=== PATIENT | male | born 1985 | race Asian ===

== ENCOUNTER 2023-09-11 07:50 | Day surgery (SDC) | payer OTHER ==
[~2023-09-11] VITALS: Ht 177.8 cm; Wt 90.3 kg
[~2023-09-11 07:50] MED LIST: NS 1,000 ML IV ONE
[2023-09-11] MEDS ORDERED: propofoL 200 MG/20 ML VIAL As Ordered ONE (08:57)
[2023-09-11 09:24] VITALS: BP 117/75; TEMP 96.9; O2SAT 96
== END 2023-09-11 13:35 | disposition home or self-care (01) ==
LOC: M OPP 07:50
PROVIDERS: ATTEND Internal Medicine Gastroenterology
DX: K64.4 Residual hemorrhoidal skin tags (principal); K64.8 Other hemorrhoids; K59.00 Constipation, unspecified; K63.5 Polyp of colon; R10.30 Lower abdominal pain, unspecified; G47.9 Sleep disorder, unspecified; Z86.79 Personal history of other diseases of the circulatory system

== ENCOUNTER 2024-02-22 12:56 | Emergency (ER) | payer OTHER ==
[~2024-02-22] VITALS: Ht 177.8 cm; Wt 85.9 kg
[2024-02-22 13:46] LABS: BASO % 0.2 % (0.0-1.0); EOS # 0.1 10^3/uL (0.0-0.5); EOS % 1.5 % (0.0-3.0); HEMATOCRIT 43.9 % (42.0-52.0); HEMOGLOBIN 15.8 g/dl (13.5-17.5); LYMPH # 1.7 10^3/uL (1.5-5.0); LYMPH % 29.4 % (24.0-44.0); MEAN CORPUSCULAR HEMOGLOBIN 30.7 pg (27.0-33.0); MEAN CORPUSCULAR VOLUME 85.2 fl (80.0-96.0); MONO # 0.5 10^3/uL (0.0-0.8); MONO % 8.3 % (2.0-8.0); NEUTROPHILS # 3.6 10^3/uL (1.5-8.5); NEUTROPHILS % 60.6 % (36.0-66.0); PLATELET COUNT, AUTOMATED 222 10^3/uL (150-450); RED BLOOD COUNT 5.15 10^6/uL (4.30-6.10); WHITE BLOOD COUNT 5.9 10^3/uL (4.0-10.0)
[2024-02-22 14:06] LABS: LIPASE 39 U/L (12-53)
[2024-02-22 14:08] LABS: ALBUMIN 4.2 G/DL (3.2-5.2); ALKALINE PHOSPHATASE 62 U/L (46-116); ALT/SGPT 25 U/L (7.0-40); AST/SGOT 16 U/L (<34); BILIRUBIN,DIRECT 0.3 MG/DL (<0.4); BLOOD UREA NITROGEN 14 MG/DL (9-23); CARBON DIOXIDE LEVEL 24 MMOL/L (20-31); CHLORIDE LEVEL 106 MMOL/L (98-107); CK-MB VALUE MASS < 1.0 NG/ML (<3.6); CREATININE FOR GFR 1.08 MG/DL (0.70-1.30); GLOMERULAR FILTRATION RATE > 60.0 (>60); GLUCOSE, FASTING 79 MG/DL (60-100); POTASSIUM SERUM 4.2 MMOL/L (3.5-5.1); SODIUM LEVEL 138 MMOL/L (136-145); TOTAL PROTEIN 7.2 G/DL (5.7-8.2)
[2024-02-22 14:09] LABS: CPK CREATINE PHOSPHOKINASE 296 U/L (46-171); MB/CK RELATIVE INDEX 0.33 (< OR =4)
[2024-02-22 15:21] LABS: CK-MB VALUE MASS < 1.0 NG/ML (<3.6); CPK CREATINE PHOSPHOKINASE 265 U/L (46-171); MB/CK RELATIVE INDEX 0.37 (< OR =4)
[2024-02-22] MEDS: NS 1,000 ML IV ONE (15:50)
[2024-02-22] MEDS: KETOROLAC 30 MG/ML 1ML VIAL IV ONE (15:50)
[2024-02-22 16:30] VITALS: BP 124/88; TEMP 97; O2SAT 98
== END 2024-02-22 16:43 | disposition home or self-care (01) ==
LOC: M ED 13:28
DX: R07.89 Other chest pain (principal); R51.9 Headache, unspecified; Z86.79 Personal history of other diseases of the circulatory system
CPT/HCPCS: 71045; 80048; 80076; 81001; 82550; 82553; 83690; 84484; 85025; 93005; 93041; 94760; 96361; 96374; 99285; J1885